=== PATIENT | male | born 1975 | race Caucasian/White ===

== ENCOUNTER → 2018-04-27 18:35 | Outpatient (CLI) | payer OTHER, SELFPAY ==
--- NOTE | 2018-04-27 | DI.MRI.S_ITS ---
PROCEDURE: MR SHOULDER RT WO CON INDICATIONS: IMPINGEMENT SYNDROME OF RIGHT SHOULDER TECHNIQUE: Noncontrast oblique coronal T2 fast spin echo with fat saturation, oblique sagittal T1 spin echo and T2 fast spin echo with fat saturation, axial T1 spin echo and T2 fast spin echo with fat saturation through the shoulder. COMPARISON: [facility], CR, XR SHOULDER MIN 2VW RT, 03/14/2017, 15:06. FINDINGS: Image quality: Diagnostic. Rotator cuff: There is at least a high-grade partial-thickness tear present involving the anterior distal supraspinatus tendon that involves the articular surface. A small nondisplaced full-thickness tear may be present. A small tear measures at least 8 mm in transverse dimension. There is corresponding moderate supraspinatus tendinopathy. There is mild infraspinatus tendinopathy. The subscapularis and teres minor tendons are intact. There is no significant rotator cuff muscle atrophy. Bones and bursae: No acute fracture, dislocation, or suspicious osseous lesion is identified involving the osseous structures of the right shoulder. There is mild focal marrow edema identified involving the posterior aspect of the superior humeral head which has a degenerative appearance. There is no significant glenohumeral joint effusion. Mild to moderate degenerative changes of the acromio clavicular joint are present. There is thickening of the subacromial subdeltoid bursa without significant fluid contained within the bursa. Capsule and soft tissues: Evaluation of the labrum and the glenohumeral ligaments is difficult without intra-articular contrast. However, there is tearing along the superior labrum that extends from at least the 10 o'clock position to the 2 o'clock position. No large para labral cysts or detached fragments are appreciated. The long head of the biceps tendon demonstrates increased signal and thickening along its intra-articular course. This tendon is normally positioned within the bicipital groove. No acute injuries are suspected involving the glenohumeral ligaments. IMPRESSION: 1. There is at least a high-grade partial-thickness tear involving the anterior distal supraspinatus tendon. A small full-thickness component may be present. 2. Mild infraspinatus tendinopathy. 3. A small to moderate-sized superior labral tear probably extends into the biceps anchor. 4. Mild tendinopathy involving the intra-articular portion of the biceps tendon. 5. Mild to moderate degenerative changes of the glenohumeral and acromioclavicular joint. Dictated by: Stiven Jackson M.D. on 04/28/2018 at 16:33 Approved by: Stiven Jackson M.D. on 04/28/2018 at 16:36
== END ==
PROVIDERS: PCP Family Medicine; Visit Provider Orthopaedic Surgery
DX: M75.41 Impingement syndrome of right shoulder (principal); M75.101 Unspecified rotator cuff tear or rupture of right shoulder, not specified as traumatic; S43.491A Other sprain of right shoulder joint, initial encounter; M19.011 Primary osteoarthritis, right shoulder
CPT/HCPCS: 73221

== ENCOUNTER → 2024-12-01 12:51 | Outpatient (CLI) | payer OTHER, SELFPAY ==
--- NOTE | 2024-12-01 12:53 | DI.RAD.S_ITS ---
PROCEDURE: XR CHEST 2V INDICATIONS: 10D cough now chills/clammy, fatigue TECHNIQUE: 2 views of the chest were acquired. COMPARISON: None. FINDINGS: Surgical changes and devices: None. Lungs and pleura: Lungs are clear. No pleural effusions or pneumothorax. Mediastinum: Mediastinal contours are normal. Heart size is normal. Bones and chest wall: No suspicious bony abnormalities. Soft tissues appear unremarkable. IMPRESSION: No acute cardiopulmonary abnormality is seen. Dictated by: Karl Joe M.D. on 12/01/2024 at 13:43 Approved by: Karl Joe M.D. on 12/01/2024 at 13:44
== END ==
PROVIDERS: PCP Family Medicine; Referring Provider Student in an Organized Health Care Education/Training Program; Visit Provider Student in an Organized Health Care Education/Training Program
DX: R05.8 Other specified cough (principal); R68.83 Chills (without fever)
CPT/HCPCS: 71046